=== PATIENT | female | born 1990 | race Caucasian/White ===

== ENCOUNTER 2018-09-30 23:59 | Observation (INO) | payer MEDICAID ==
[2018-10-01] MEDS ORDERED: Magnesium Sulfate/Water 20 GM/500 ML BAG ONE (00:02)
[2018-10-01] MEDS ORDERED: Sodium Chloride 0.9% 10 ML Syringe FLUSH PRN (00:39)
[2018-10-01] MEDS ORDERED: Sodium Chloride 0.9% 10 ML SDV IV PRN (00:39)
[2018-10-01] MEDS ORDERED: Sodium Chloride 0.9% 2.5 ML Syringe FLUSH PRN (00:39)
[2018-10-01] MEDS ORDERED: Betamethasone Acetate/Betamethasone Sod Phosphate 30 MG/5 ML MDV IM ONE (00:39)
[2018-10-01] MEDS ORDERED: Lidocaine 2% Viscous Solution 15 ML Cup ONE (00:45)
[2018-10-01] MEDS ORDERED: Sodium Chloride 0.9% 1,000 ML IV SCH (00:45)
[2018-10-01] MEDS ORDERED: Lidocaine 5% Oint 35.44 GM Tube TOP ONE (00:46)
[2018-10-01] MEDS ORDERED: Lidocaine 2% Jelly 30 ML Tube MUCMEM PRN (00:50)
[2018-10-01 01:14] LABS: CHLORIDE,CL 106 mmol/L (98-107); SODIUM,NA 138 mmol/L (136-145)
[2018-10-01] MEDS ORDERED: Benzocaine/Menthol 20%-0.5% Spray 78 GM Cannister TOP PRN (01:36)
--- NOTE | 2018-10-01 02:32 | US ---
HISTORY: Low pelvic pain. Evaluate for placental abruption. TECHNIQUE: Transabdominal obstetric ultrasound. COMPARISON: None. FINDINGS: Single live intrauterine gestation. Fetus is in cephalic position. cardiac activity is present with regular heart rate of 115 beats per minute. Placenta is posterior. Visualized portions of the placenta are unremarkable without evidence of abruption. Portions of the placenta are obscured by shadowing. IMPRESSION: Single live intrauterine gestation. No evidence of placental abruption. Dictated by Jefferson Ochoa MD @ Oct 01 2018 4:49PM Signed by Dr. Jefferson Ochoa @ Oct 01 2018 4:51PM
[2018-10-01] MEDS ORDERED: Ondansetron 4 MG/2 ML SDV IVPUSH PRN (08:05)
[2018-10-01] MEDS: Acetaminophen/Butalbital/Caffeine 325-50-40 MG Tab PO PRN ×2 (08:35→16:47)
[2018-10-01] MEDS: NIFEdipine 30 MG Tab.ER PO SCH (08:36)
--- NOTE | 2018-10-01 16:23 | PCM.LDHP ---
L&D History of Present Illness - General Date of Service: 10/01/18 Admit Problem/Dx: Patient Status Order with Admit Dx/Problem 10/01/18 00:39 Admission Status [Patient Status] [ADT] Routine Admission Diagnosis/Problem Admission Diagnosis/Problem Source of Information: Patient History Limitations: Reports: No Limitations - History of Present Illness Pain Score: 10 Improves with: Reports: None Worsens with: Reports: None Associated Symptoms: Reports: N - Related Data Allergies/Adverse Reactions: Allergies Allergy/AdvReac Type Severity Reaction Status Date / Time No Known Allergies Allergy Verified 09/10/18 17:26 Home Medications: Home Meds Acetaminophen [Tylenol Extra Strength] 500 mg PO DAILY PRN 09/10/18 [History] [id number]/FA/Omega3/Dha/Fish Oil [ Gummies] 1 each PO DAILY 09/10/18 [ History] Past Medical History HEENT History: Reports: None Cardiovascular History: Reports: None Respiratory History: Reports: None Gastrointestinal History: Reports: None Genitourinary History: Reports: None 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: , 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 Musculoskeletal History: Reports: Fracture Neurological History: Reports: None Psychiatric History: Reports: Anxiety Endocrine/Metabolic History: Reports: None Hematologic History: Reports: None Immunologic History: Reports: None Oncologic (Cancer) History: Reports: None Dermatologic History: Reports: None - Infectious Disease History Infectious Disease History: Reports: Chicken Pox - Past Surgical History HEENT Surgical History: Reports: None GI Surgical History: Reports: None Female Surgical History: Reports: D&C Musculoskeletal Surgical History: Reports: None Social & Family History - Family History Family Medical History: Unobtainable - Tobacco Use Smoking Status *Q: Never Smoker Second Hand Smoke Exposure: No - Caffeine Use Caffeine Use: Reports: Soda - Recreational Drug Use Recreational Drug Use: No H&P Review of Systems - Review of Systems: Review Of Systems: See Below General: Reports: No Symptoms HEENT: Reports: No Symptoms Pulmonary: Reports: No Symptoms Cardiovascular: Reports: No Symptoms Gastrointestinal: Reports: No Symptoms Genitourinary: Reports: No Symptoms Musculoskeletal: Reports: No Symptoms Skin: Reports: No Symptoms Psychiatric: Reports: No Symptoms Neurological: Reports: No Symptoms Hematologic/Lymphatic: Reports: No Symptoms Immunologic: Reports: No Symptoms L&D Exam - Exam Exam: See Below - Vital Signs Vital Signs: Last Vital Signs Temp Pulse Resp BP 146/96 H 10/01/18 08:36 Pulse Ox Weight: 95.254 kg - OB Specific Contraction Intensity: Mild Movement: Active Heart Tones: Present Presentation: Vertex - Jackson Score Jackson Score Cervix Position: Posterior Jackson Score Consistency: Firm Jackson Score Effacement: 31-50% Jackson Score Dilation: Closed Jackson Score Infant's Station: -3 Jackson Score Total: 1 - Exam General: Alert, Oriented HEENT: PERRLA, Conjunctiva Clear, EACs Clear, EOMI, Hearing Intact, Mucosa Moist & [place], Nares Patent, Normal Nasal Septum, Posterior Pharynx Clear, TMs Clear Neck: Supple, Trachea Midline Lungs: Clear to Auscultation, Normal Respiratory Effort Cardiovascular: Regular Rate, Regular Rhythm GI/Abdominal Exam: Normal Bowel Sounds, Soft, Non-Tender, No Organomegaly, No Distention, No Abnormal Bruit, No Mass, Pelvis Stable Rectal Exam: Normal Exam, Normal Rectal Tone Genitourinary: Normal external exam, Normal bimanual exam, Normal speculum exam Back Exam: Normal Inspection, Full Range of Motion Extremities: Normal Inspection, Normal Range of Motion, Non-Tender, No Pedal Edema, Normal Capillary Refill Skin: Warm, Dry, Intact Neurological: Cranial Nerves Intact, Reflexes Equal Bilateral Psychiatric: Alert, Normal Affect, Normal Mood - Patient Data Lab Results Last 24 hrs: Laboratory Results - last 24 hr 10/01/18 10/01/18 10/01/18 Range/Units 00:35 00:45 00:45 WBC 10.99 (4.0-11.0) K/uL RBC 3.69 L (4.30-5.90) M/uL Hgb 12.5 (12.0-16.0) g/dL Hct 35.0 L (36.0-46.0) % MCV 94.9 (80.0-98.0) fL MCH 33.9 H (27.0-32.0) pg MCHC 35.7 (31.0-37.0) g/dL RDW Std Deviation 39.2 (28.0-62.0) fl RDW Coeff of Kami 12 (11.0-15.0) % Plt Count 213 (150-400) K/uL MPV 11.70 (7.40-12.00) fL Sodium 138 (136-145) mmol/L Potassium 3.9 (3.5-5.1) mmol/L Chloride 106 (98-107) mmol/L Carbon Dioxide 23.5 (21.0-32.0) mmol/L BUN 12 (7.0-18.0) mg/dL Creatinine 0.8 (0.6-1.0) mg/dL Est Cr Clr Drug Dosing 116.25 mL/min Estimated GFR (MDRD) > 60.0 ml/min Glucose 95 (74-106) mg/dL Uric Acid 4.9 (2.6-7.2) mg/dL Calcium 8.3 L (8.5-10.1) mg/dL Magnesium 4.0 H (1.8-2.4) mg/dL Total Bilirubin 0.2 (0.2-1.0) mg/dL AST 13 L (15-37) IU/L ALT 15 (14-63) IU/L Alkaline Phosphatase 102 (46-116) U/L Total Protein 5.4 L (6.4-8.2) g/dL Albumin 2.3 L (3.4-5.0) g/dL Globulin 3.1 (2.6-4.0) g/dL Albumin/Globulin Ratio 0.7 L (0.9-1.6) Membrane Rupture 10/01/18 10/01/18 Range/Units 07:14 08:40 WBC (4.0-11.0) K/uL RBC (4.30-5.90) M/uL Hgb (12.0-16.0) g/dL Hct (36.0-46.0) % MCV (80.0-98.0) fL MCH (27.0-32.0) pg MCHC (31.0-37.0) g/dL RDW Std Deviation (28.0-62.0) fl RDW Coeff of Kami (11.0-15.0) % Plt Count (150-400) K/uL MPV (7.40-12.00) fL Sodium (136-145) mmol/L Potassium (3.5-5.1) mmol/L Chloride (98-107) mmol/L Carbon Dioxide (21.0-32.0) mmol/L BUN (7.0-18.0) mg/dL Creatinine (0.6-1.0) mg/dL Est Cr Clr Drug Dosing mL/min Estimated GFR (MDRD) ml/min Glucose (74-106) mg/dL Uric Acid (2.6-7.2) mg/dL Calcium (8.5-10.1) mg/dL Magnesium 5.7 H (1.8-2.4) mg/dL Total Bilirubin (0.2-1.0) mg/dL AST (15-37) IU/L ALT (14-63) IU/L Alkaline Phosphatase (46-116) U/L Total Protein (6.4-8.2) g/dL Albumin (3.4-5.0) g/dL Globulin (2.6-4.0) g/dL Albumin/Globulin Ratio (0.9-1.6) Membrane Rupture NEGATIVE Result Diagrams: 10/01/18 00:45 10/01/18 00:35 Problem List Initiated/Reviewed/Updated: Yes Orders Last 24hrs: Active Orders 24 hr Category Date Time Status Admission Status [Patient Status] [ADT] Routine ADT 10/01/18 00:39 Active Vital Signs [RC] PER UNIT ROUTINE Care 10/01/18 00:39 Active Regular Diet [DIET] Diet 10/01/18 Breakfast Active BPP wo NST [US] Routine Exams 10/01/18 09:43 Taken PROTEIN,URINE 24HR [URCHEM] Routine Lab 10/01/18 00:44 Ordered Acetaminophen/Butalbital/Caff [Fioricet 325-50-40 MG] Med 10/01/18 07:59 Active 1 - 2 tab PO Q4H PRN Benzocaine/Menthol [Dermoplast Pain Relief 20%-0.5% Med 10/01/18 01:36 Active [place]] 7 gm TOP ASDIRECTED PRN Lidocaine 2% [Xylocaine 2% Jelly] Med 10/01/18 00:50 Active See Dose Instructions MUCMEM 5XDAY PRN NIFEdipine [Procardia XL] Med 10/01/18 09:00 Active 60 mg PO DAILY Ondansetron [Zofran] Med 10/01/18 08:05 Active 4 mg IVPUSH Q6H PRN Sodium Chloride 0.9% [Normal Saline] Med 10/01/18 00:39 Active 10 ml IV ASDIRECTED PRN Sodium Chloride 0.9% [Normal Saline] 1,000 ml Med 10/01/18 00:45 Active IV ASDIRECTED Sodium Chloride 0.9% [Saline Flush] Med 10/01/18 00:39 Active 10 ml FLUSH ASDIRECTED PRN Sodium Chloride 0.9% [Saline Flush] Med 10/01/18 00:39 Active 2.5 ml FLUSH ASDIRECTED PRN Peripheral IV Insertion Adult [OM.PC] Urgent Oth 10/01/18 00:39 Ordered Resuscitation Status Routine Resus Stat 10/01/18 00:39 Ordered Medication Orders Acetaminophen/Butalbital/Caffeine (Fioricet 325-50-40 Mg) 1 - 2 tab PO Q4H PRN PRN Reason: Headache Last Admin: 10/01/18 08:35 Dose: 2 tab Benzocaine/Menthol (Dermoplast Pain Relief 20%-0.5% [place]) 7 gm TOP ASDIRECTED PRN PRN Reason: Pain Sodium Chloride (Normal Saline) 1,000 mls @ 125 mls/hr IV ASDIRECTED [facility] Last Infusion: 10/01/18 07:45 Dose: 5 mls/hr Admin: 10/01/18 00:10 Dose: 50 mls/hr Lidocaine HCl (Xylocaine 2% Jelly) 0 ml MUCMEM 5XDAY PRN PRN Reason: Pain Nifedipine (Procardia Xl) 60 mg PO DAILY [facility] Last Admin: 10/01/18 08:36 Dose: 60 mg Ondansetron HCl (Zofran) 4 mg IVPUSH Q6H PRN PRN Reason: Nausea/Vomiting Last Admin: 10/01/18 08:32 Dose: 4 mg Sodium Chloride (Saline Flush) 10 ml FLUSH ASDIRECTED PRN PRN Reason: Keep Vein Open Sodium Chloride (Saline Flush) 2.5 ml FLUSH ASDIRECTED PRN PRN Reason: Keep Vein Open Sodium Chloride (Normal Saline) 10 ml IV ASDIRECTED PRN PRN Reason: IV Use Assessment/Plan Comment:: IUP 34wks + admitted for possible Preeclampsia evaluation.
--- NOTE | 2018-10-01 16:59 | US ---
CLINICAL HISTORY: Biophysical profile followup. TECHNIQUE: Real time perry scale imaging of the fetus was performed as well as color Doppler and spectral Doppler analysis of the umbilical artery. Without non-stress testing. COMPARISON: Ultrasound same day at 0057 hours. FINDINGS: Single intrauterine gestation in cephalic position. cardiac activity is present with regular heart rate of 108-111 beats per minute. Amniotic fluid volume is within normal limits. Four quadrant amniotic fluid index is 14.5 cm. Single deepest pocket of amniotic fluid is 4.9 cm. Incidentally, there is a nuchal cord. breathing movements: 2/2 Gross body movement: 2/2 tone: 2/2 Amniotic fluid volume: 2/2 IMPRESSION: 1. Normal biophysical profile score of 8 out of 8. 2. Nuchal cord. Dictated by Jefferson Ochoa MD @ Oct 01 2018 4:52PM Signed by Dr. Jefferson Ochoa @ Oct 01 2018 4:58PM
[2018-10-02] MEDS ORDERED: Betamethasone Acetate/Betamethasone Sod Phosphate 30 MG/5 ML MDV IM ONE (00:39)
[2018-10-02 06:41] LABS: CHLORIDE,CL 106 mmol/L (98-107); SODIUM,NA 135 mmol/L (136-145)
[2018-10-02] MEDS: NIFEdipine 30 MG Tab.ER PO SCH (09:20)
--- NOTE | 2018-10-05 08:59 | PCM.DCSUM1 ---
Discharge Summary - Hospital Course Diagnosis: Stroke: No - Discharge Data Discharge Date: 10/02/18 Discharge Disposition: Home, Self-Care 01 Condition: Good - Patient Instructions Diet: Usual Diet as Tolerated Driving: Do Not Drive Showering/Bathing: May Shower Notify Provider of: Fever, Increased Pain, Nausea and/or Vomiting - Discharge Plan Home Medications: Home Meds Acetaminophen [Tylenol Extra Strength] 500 mg PO DAILY PRN 09/10/18 [History] Nak181/FA/Omega3/Dha/Fish Oil [ Gummies] 1 each PO DAILY 09/10/18 [ History] Patient Handouts: Preeclampsia and Eclampsia, Third Trimester of , [id number] Referrals: [facility] [Outside] Nasir Hernandez MD [Physician] - 10/09/18 9:45 am - Discharge Summary/Plan Comment DC Time >30 min.: Yes - General Info Date of Service: 10/02/18 Functional Status: Reports: Pain Controlled - Review of Systems General: Reports: No Symptoms HEENT: Reports: No Symptoms Pulmonary: Reports: No Symptoms Cardiovascular: Reports: No Symptoms Gastrointestinal: Reports: No Symptoms Genitourinary: Reports: No Symptoms Musculoskeletal: Reports: No Symptoms Skin: Reports: No Symptoms Neurological: Reports: No Symptoms Psychiatric: Reports: No Symptoms - Patient Data Vitals - Most Recent: Last Vital Signs Temp Pulse Resp BP 131/83 10/02/18 09:20 Pulse Ox Weight - Most Recent: 95.254 kg Med Orders - Current: Current Medications Discontinued Medications Acetaminophen/Butalbital/Caffeine (Fioricet 325-50-40 Mg) 1 - 2 tab PO Q4H PRN PRN Reason: Headache Last Admin: 10/01/18 16:47 Dose: 2 tab Benzocaine/Menthol (Dermoplast Pain Relief 20%-0.5% [place]) 7 gm TOP ASDIRECTED PRN PRN Reason: Pain Betamethasone Acet/Betameth SodPhos ([place] Soluspan 6 Mg/Ml) 12 mg IM ASDIRECTED ONE Stop: 10/01/18 00:40 Last Admin: 10/01/18 00:56 Dose: 12 mg Betamethasone Acet/Betameth SodPhos (Celestone Soluspan 6 Mg/Ml) 12 mg IM ONETIME ONE Stop: 10/02/18 00:40 Last Admin: 10/02/18 00:51 Dose: 12 mg Magnesium Sulfate (Magnesium Sulfate In Water Premix) Confirm Administered Dose 20 gm in 500 mls @ as directed .ROUTE .STK-MED ONE Stop: 10/01/18 00:03 Last Admin: 10/01/18 00:10 Dose: 50 mls/hr Sodium Chloride (Normal Saline) 1,000 mls @ 125 mls/hr IV ASDIRECTED [facility] TO [facility] Last Infusion: 10/01/18 07:45 Dose: 5 mls/hr Lidocaine HCl (Lidocaine 5%) 0 gm TOP ONETIME ONE Stop: 10/01/18 00:47 Lidocaine HCl (Xylocaine 2% Viscous) Confirm Administered Dose 15 ml .ROUTE .STK -MED ONE Stop: 10/01/18 00:46 Last Admin: 10/01/18 01:34 Dose: 15 ml Lidocaine HCl (Xylocaine 2% Jelly) 0 ml MUCMEM 5XDAY PRN PRN Reason: Pain Nifedipine (Procardia Xl) 60 mg PO DAILY [facility] Last Admin: 10/02/18 09:20 Dose: 60 mg Ondansetron HCl (Zofran) 4 mg IVPUSH Q6H PRN PRN Reason: Nausea/Vomiting Last Admin: 10/01/18 08:32 Dose: 4 mg Sodium Chloride (Saline Flush) 10 ml FLUSH ASDIRECTED PRN PRN Reason: Keep Vein Open Sodium Chloride (Saline Flush) 2.5 ml FLUSH ASDIRECTED PRN PRN Reason: Keep Vein Open Sodium Chloride (Normal Saline) 10 ml IV ASDIRECTED PRN PRN Reason: IV Use - Exam General: Reports: Alert, Oriented HEENT: Reports: Pupils Equal, Pupils Reactive, EOMI, Mucous Membr. Moist/[place] Neck: Reports: Supple Lungs: Reports: Clear to Auscultation, Normal Respiratory Effort Cardiovascular: Reports: Regular Rate, Regular Rhythm GI/Abdominal Exam: Normal Bowel Sounds, Soft, Non-Tender, No Organomegaly, No Distention, No Abnormal Bruit, No Mass, Pelvis Stable (Female) Exam: Normal External Exam, Normal Speculum Exam, Normal Bimanual Exam Rectal (Female) Exam: Normal Exam, Normal Rectal Tone Back Exam: Reports: Normal Inspection, Full Range of Motion Extremities: Normal Inspection, Normal Range of Motion, Non-Tender, No Pedal Edema, Normal Capillary Refill Skin: Reports: Warm, Dry, Intact Wound/Incisions: Reports: Healing Well Neurological: Reports: No New Focal Deficit Psy/Mental Status: Reports: Alert, Normal Affect, Normal Mood
== END 2018-10-02 09:55 | disposition home or self-care (01) ==
LOC: MW.OBCHECK 23:59 → MW.OB 10-01 00:18 → MW.OBCHECK 10-01 08:27
PROVIDERS: ADMIT Obstetrics & Gynecology; ATTEND Obstetrics & Gynecology
DX: Z04.89 Encounter for examination and observation for other specified reasons (principal); Z3A.34 34 weeks gestation of pregnancy
CPT/HCPCS: 36415; 51702; 59025; 76815; 76819; 80053; 83735; 84112; 84156; 84550; 85025; 85027; A9270; J0702; J2405; J3475; J7040; 96361; 96372; 96374; 96375; G0378

== ENCOUNTER 2018-10-15 00:09 | Inpatient (IN) | payer MEDICAID ==
--- NOTE | 2018-10-15 00:16 | PCM.LDHP ---
L&D History of Present Illness - General Date of Service: 10/15/18 Admit Problem/Dx: Admission Diagnosis/Problem Admission Diagnosis/Problem Source of Information: Patient History Limitations: Reports: No Limitations - History of Present Illness Improves with: Reports: None Worsens with: Reports: None Associated Symptoms: Reports: N - Related Data Allergies/Adverse Reactions: Allergies Allergy/AdvReac Type Severity Reaction Status Date / Time No Known Allergies Allergy Verified 09/10/18 17:26 Home Medications: Home Meds Acetaminophen [Tylenol Extra Strength] 500 mg PO DAILY PRN 09/10/18 [History] Zhn087/FA/Omega3/Dha/Fish Oil [ Gummies] 1 each PO DAILY 09/10/18 [ History] Past Medical History HEENT History: Reports: None Cardiovascular History: Reports: None Respiratory History: Reports: None Gastrointestinal History: Reports: None Genitourinary History: Reports: None 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: , 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 Musculoskeletal History: Reports: Fracture Neurological History: Reports: None Psychiatric History: Reports: Anxiety Endocrine/Metabolic History: Reports: None Hematologic History: Reports: None Immunologic History: Reports: None Oncologic (Cancer) History: Reports: None Dermatologic History: Reports: None - Infectious Disease History Infectious Disease History: Reports: Chicken Pox - Past Surgical History HEENT Surgical History: Reports: None GI Surgical History: Reports: None Female Surgical History: Reports: D&C Musculoskeletal Surgical History: Reports: None Social & Family History - Family History Family Medical History: Unobtainable - Caffeine Use Caffeine Use: Reports: Soda H&P Review of Systems - Review of Systems: Review Of Systems: See Below General: Reports: No Symptoms HEENT: Reports: No Symptoms Pulmonary: Reports: No Symptoms Cardiovascular: Reports: No Symptoms Gastrointestinal: Reports: No Symptoms Genitourinary: Reports: No Symptoms Musculoskeletal: Reports: No Symptoms Skin: Reports: No Symptoms Psychiatric: Reports: No Symptoms Neurological: Reports: No Symptoms Hematologic/Lymphatic: Reports: No Symptoms Immunologic: Reports: No Symptoms L&D Exam - Exam Exam: See Below - OB Specific Contraction Intensity: Mild Movement: Active Heart Tones: Present Presentation: Vertex - Jackson Score Jackson Score Cervix Position: Anterior Jackson Score Consistency: Soft Jackson Score Effacement: 51-70% Jackson Score Dilation: 1-2 cm Jackson Score Infant's Station: -3 Jackson Score Total: 7 - Exam General: Alert, Oriented HEENT: PERRLA, Conjunctiva Clear, EACs Clear, EOMI, Hearing Intact, Mucosa Moist & [place], Nares Patent, Normal Nasal Septum, Posterior Pharynx Clear, TMs Clear Neck: Supple, Trachea Midline Lungs: Clear to Auscultation, Normal Respiratory Effort Cardiovascular: Regular Rate, Regular Rhythm GI/Abdominal Exam: Normal Bowel Sounds, Soft, Non-Tender, No Organomegaly, No Distention, No Abnormal Bruit, No Mass, Pelvis Stable Rectal Exam: Normal Exam, Normal Rectal Tone Genitourinary: Normal external exam, Normal bimanual exam, Normal speculum exam Back Exam: Normal Inspection, Full Range of Motion Extremities: Normal Inspection, Normal Range of Motion, Non-Tender, No Pedal Edema, Normal Capillary Refill Skin: Warm, Dry, Intact Neurological: Cranial Nerves Intact, Reflexes Equal Bilateral Psychiatric: Alert, Normal Affect, Normal Mood Problem List Initiated/Reviewed/Updated: Yes Orders Last 24hrs: IUP 36 wks with pre eclampsia admited for elective induction.
[2018-10-15] MEDS ORDERED: Terbutaline 1 MG/ML SDV SUBCUT PRN (00:33)
[2018-10-15] MEDS ORDERED: Sodium Chloride 0.9% 2.5 ML Syringe FLUSH PRN (00:33)
[2018-10-15] MEDS ORDERED: Ondansetron 4 MG/2 ML SDV IVPUSH PRN ×2 (00:33→09:23)
[2018-10-15] MEDS ORDERED: Sodium Chloride 0.9% 10 ML Syringe FLUSH PRN (00:33)
[2018-10-15] MEDS ORDERED: Methylergonovine 0.2 MG/1 ML Amp IM PRN (00:33)
[2018-10-15] MEDS ORDERED: Misoprostol 200 MCG Tab PO PRN (00:33)
[2018-10-15] MEDS ORDERED: Sodium Chloride 0.9% 10 ML SDV IV PRN (00:33)
[2018-10-15] MEDS ORDERED: Misoprostol 25 MCG (1/4 of 100 MCG) Tab VAG PRN ×2 (00:33)
[2018-10-15] MEDS ORDERED: Carboprost Tromethamine 250 MCG/1 ML Amp IM PRN (00:33)
[2018-10-15] MEDS ORDERED: Nalbuphine 10 MG/1 ML Vial IVPUSH PRN ×2 (00:33→09:25)
[2018-10-15] MEDS ORDERED: Lidocaine 1% 50 ML MDV INJECT PRN (00:33)
[2018-10-15] MEDS ORDERED: Water For Irrigation,Sterile 1,000 ML Container IRR PRN (00:33)
[2018-10-15] MEDS ORDERED: Tranexamic Acid 1,000 MG in Sodium Chloride 0.9% 100 ML IV PRN (00:33)
[2018-10-15] MEDS ORDERED: Misoprostol 25 MCG (1/4 of 100 MCG) Tab PO ONE (00:38)
[2018-10-15] MEDS ORDERED: Oxytocin/0.9 % Sodium Chloride 30 UNIT/500 ML BAG IV SCH ×2 (00:45)
[2018-10-15] MEDS: Lactated Ringers 1,000 ML IV SCH ×4 (03:00→20:05)
--- NOTE | 2018-10-15 07:18 | PCM.PREANE ---
Preanesthetic Assessment - Anesthesia/Transfusion/Family Hx Anesthesia History: No Prior Anesthesia Family History of Anesthesia Reaction: No Transfusion History: No Prior Transfusion(s) - Review of Systems General: No Symptoms Pulmonary: No Symptoms Cardiovascular: No Symptoms Gastrointestinal: No Symptoms Neurological: No Symptoms, Change in Speech - Physical Assessment NPO Status Date: 10/14/18 NPO Status Time: 20:00 Height: 1.75 m Weight: 95.708 kg ASA Class: 1 Mental Status: Alert & Oriented x3 Dentition: Reports: Normal Dentition ROM/Head Extension: Full - Lab Values: Laboratory Last Values WBC 11.80 K/uL (4.0-11.0) H 10/15/18 01:10 RBC 3.66 M/uL (4.30-5.90) L 10/15/18 01:10 Hgb 12.7 g/dL (12.0-16.0) 10/15/18 01:10 Hct 35.1 % (36.0-46.0) L 10/15/18 01:10 MCV 95.9 fL (80.0-98.0) 10/15/18 01:10 MCH 34.7 pg (27.0-32.0) H 10/15/18 01:10 MCHC 36.2 g/dL (31.0-37.0) 10/15/18 01:10 RDW Std Deviation 40.5 fl (28.0-62.0) 10/15/18 01:10 RDW Coeff of Kami 12 % (11.0-15.0) 10/15/18 01:10 Plt Count 201 K/uL (150-400) 10/15/18 01:10 MPV 11.90 fL (7.40-12.00) 10/15/18 01:10 Blood Type A POSITIVE 10/15/18 01:10 Antibody Screen NEGATIVE 10/15/18 01:10 - Allergies Allergies/Adverse Reactions: Allergies Allergy/AdvReac Type Severity Reaction Status Date / Time No Known Allergies Allergy Verified 09/10/18 17:26 - Acknowledgements Anesthesia Type Planned: Spinal, Epidural Pt an Appropriate Candidate for the Planned Anesthesia: Yes Alternatives and Risks of Anesthesia Discussed w Pt/Guardian: Yes Pt/Guardian Understands and Agrees with Anesthesia Plan: Yes PreAnesthesia Questionnaire HEENT History: Reports: None Cardiovascular History: Reports: None Respiratory History: Reports: None Gastrointestinal History: Reports: None Genitourinary History: Reports: None 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: , 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 Musculoskeletal History: Reports: Fracture Neurological History: Reports: None Psychiatric History: Reports: Anxiety Endocrine/Metabolic History: Reports: None Hematologic History: Reports: None Immunologic History: Reports: None Oncologic (Cancer) History: Reports: None Dermatologic History: Reports: None - Infectious Disease History Infectious Disease History: Reports: Chicken Pox - Past Surgical History HEENT Surgical History: Reports: None GI Surgical History: Reports: None Female Surgical History: Reports: D&C Musculoskeletal Surgical History: Reports: None - SUBSTANCE USE Recreational Drug Use History: No - HOME MEDS Home Medications: Home Meds Acetaminophen [Tylenol Extra Strength] 500 mg PO DAILY PRN 09/10/18 [History] [id number]/FA/Omega3/Dha/Fish Oil [ Gummies] 1 each PO DAILY 09/10/18 [ History] - CURRENT (IN HOUSE) MEDS Current Meds: Current Medications Carboprost Tromethamine (Hemabate Ds) 250 mcg IM ASDIRECTED PRN PRN Reason: Post Hemorrhage Lactated Ringer's (Ringers, Lactated) 1,000 mls @ 150 mls/hr IV ASDIRECTED SOL Last Admin: 10/15/18 06:05 Dose: 250 mls/hr Oxytocin/Sodium Chloride (Oxytocin 30 Unit/500 Ml-Ns) 30 unit in 500 mls @ 999 mls/hr IV TITRATE SOL Oxytocin/Sodium Chloride (Oxytocin 30 Unit/500 Ml-Ns) 30 unit in 500 mls @ 2 mls/hr IV TITRATE SOL; Protocol Tranexamic Acid 1,000 mg/ (Sodium Chloride) 110 mls @ 660 mls/hr IV ONETIME PRN PRN Reason: Bleeding Lidocaine HCl (Xylocaine 1%) 50 ml INJECT ONETIME PRN PRN Reason: Laceration repair Methylergonovine Maleate (Methergine) 0.2 mg IM ASDIRECTED PRN PRN Reason: Post Hemorrhage Misoprostol (Cytotec) 200 mcg PO ONETIME PRN PRN Reason: Post Hemorrhage Misoprostol (Cytotec) 25 mcg VAG ONETIME PRN PRN Reason: Cervical Ripening Last Admin: 10/15/18 01:43 Dose: 25 mcg Misoprostol (Cytotec) 25 mcg VAG Q4H PRN PRN Reason: Cervical Ripening Misoprostol (Cytotec) 25 mcg PO Q4HR SOL Nalbuphine HCl (Nubain) 10 mg IVPUSH Q1H PRN PRN Reason: Pain (severe 7-10) Ondansetron HCl (Zofran) 4 mg IVPUSH Q4H PRN PRN Reason: Nausea/Vomiting Sodium Chloride (Saline Flush) 10 ml FLUSH ASDIRECTED PRN PRN Reason: Keep Vein Open Sodium Chloride (Saline Flush) 2.5 ml FLUSH ASDIRECTED PRN PRN Reason: Keep Vein Open Sodium Chloride (Normal Saline) 10 ml IV ASDIRECTED PRN PRN Reason: IV Use Sterile Water (Sterile Water For Irrigation) 1,000 ml IRR ASDIRECTED PRN PRN Reason: delivery Terbutaline Sulfate (Brethine) 0.25 mg SUBCUT ASDIRECTED PRN PRN Reason: Tacysystole Discontinued Medications Misoprostol (Cytotec) 25 mcg PO ONETIME ONE Stop: 10/15/18 00:39 Last Admin: 10/15/18 01:42 Dose: 25 mcg
[2018-10-15] MEDS ORDERED: Ketorolac 30 MG/ML SDV ONE (08:14)
[2018-10-15] MEDS ORDERED: Ondansetron 4 MG/2 ML SDV ONE (08:14)
[2018-10-15] MEDS ORDERED: Oxytocin 10 Units/1 ML SDV ONE (08:14)
[2018-10-15] MEDS ORDERED: Morphine PF 10 MG/10 ML SDV ONE (08:14)
[2018-10-15] MEDS ORDERED: Phenylephrine/Normal Saline 100 MCG/ML 10 ML Syringe ONE (08:14)
[2018-10-15] MEDS ORDERED: ceFAZolin 1 GM Vial ONE (08:19)
[2018-10-15] MEDS ORDERED: Sodium Chloride 0.9% 20 ML ONE (08:19)
[2018-10-15] MEDS ORDERED: Octyl 2-Cyanoacrylate 1 Tube ONE (08:28)
[2018-10-15] MEDS ORDERED: diphenhydrAMINE 50 MG/ML SDV IVPUSH PRN (09:23)
[2018-10-15] MEDS ORDERED: Lanolin 100% Cream 7 GM Tube TOP PRN (09:23)
[2018-10-15] MEDS ORDERED: Acetaminophen/oxyCODONE 325-5 MG Tab PO PRN ×2 (09:23→09:25)
[2018-10-15] MEDS ORDERED: Bisacodyl 10 MG Supp RECTAL PRN (09:23)
--- NOTE | 2018-10-15 09:27 | PCM.OPNOTE ---
- General Post-Op/Procedure Note Date of Surgery/Procedure: 10/15/18 Operative Procedure(s): Primary C/Section Pre Op Diagnosis: IUP 36 wks Preelampicia Post-Op Diagnosis: Same Anesthesia Technique: Spinal Primary Surgeon: Nasir Hernandez EBL in mLs: 600 Complications: None Condition: Good
[2018-10-15] MEDS: Ketorolac 30 MG/ML SDV IVPUSH SCH ×3 (09:30→21:33)
--- NOTE | 2018-10-15 10:19 | PCM.POSTAN ---
POST ANESTHESIA ASSESSMENT - MENTAL STATUS Mental Status: Alert - VITAL SIGNS Vital Signs: Last Vital Signs Temp 36.1 C 10/15/18 09:38 Pulse 83 10/15/18 10:08 Resp 8 L 10/15/18 10:08 BP 123/89 10/15/18 10:08 Pulse Ox 95 10/15/18 10:08 - RESPIRATORY Respiratory Status: Respiratory Rate WNL - CARDIOVASCULAR CV Status: Pulse Rate WNL - GASTROINTESTINAL GI Status: No Symptoms - POST OP HYDRATION Hydration Status: Adequate & Stable
--- NOTE | 2018-10-15 15:33 | OR ---
SURGEON: Nasir Hernandez MD DATE OF PROCEDURE: PREOPERATIVE DIAGNOSES: Intrauterine at 36 weeks plus preeclampsia, intolerance to induction of labor, non-reassuring heart rate, remote from delivery. POSTOPERATIVE DIAGNOSES: Intrauterine at 36 weeks plus preeclampsia, intolerance to induction of labor, non-reassuring heart rate, remote from delivery. OPERATION PERFORMED: Primary low-transverse section. PRIMARY SURGEON: Nasir Hernandez MD MACHINE SPLITTER: Lauren Gasca. ANESTHESIA: Spinal, Mr. Colten Liu. ESTIMATED BLOOD LOSS: 600 mL. COMPLICATIONS: None. FINDING: Female fetus. score reported to be 8 and 9. Normal uterus, tubes, and ovaries. INDICATION FOR SURGERY: This patient is 28, primigravida. She is having preeclampsia. She is treated with bedrest and antihypertension medication for the last 10 days hoping to get to 36 weeks. When she got to 36 weeks, she was admitted for induction and the patient did not tolerate induction. She had a category 2 heart rate. She was remote from delivery. A decision was made to do a primary low-transverse section. PROCEDURE IN DETAIL: The patient was brought to the OR, properly identified, and after adequate level of spinal anesthesia with the Tejeda catheter in the bladder, the patient was prepped and draped in sterile fashion as usual. Low-transverse Pfannenstiel skin incision was done. Kali's fascia and rectus fascia were opened in direction of the incision. The 2 recti muscles were and peritoneal cavity was entered. Bladder flap was raised in the usual manner pushing the bladder away from the lower uterine segment. Low-transverse uterine incision was done and extended manually with hand, fetus was in a vertex position, delivered without any problem, cried immediately. score reported to be 8 and 9. The fetus was handed to the pediatric team for resuscitation and the weight is not available at this time. The placenta delivered spontaneous, complete, and intact, and repair of the lower uterine segment was done with 2-0 Vicryl continuous interlocking in 2 layers. Reperitonealization done with 3-0 Vicryl continuous. The peritoneal cavity evacuated completely from all blood and blood clot and closed with 3-0 Vicryl continuous. The rectus fascia was closed with #1 PDS continuous and the Kali's fascia with 3-0 Vicryl continuous, the skin closed with 3-0 Vicryl with a Newton needle in a subcuticular fashion with Dermabond. The instrument and sponge count were correct. The patient tolerated the procedure well, went to recovery room in stable general condition. CHERELLE SANDOVAL /[id number]
[2018-10-15] MEDS: Docusate Sodium 100 MG Cap PO SCH (21:33)
[2018-10-16] MEDS: Ketorolac 30 MG/ML SDV IVPUSH SCH ×2 (03:51→08:35)
[2018-10-16] MEDS: Docusate Sodium 100 MG Cap PO SCH ×2 (08:01→22:47)
--- NOTE | 2018-10-16 08:24 | PCM.PNPP ---
- General Info Date of Service: 10/16/18 Admission Dx/Problem (Free Text): Admission Diagnosis/Problem Admission Diagnosis/Problem Functional Status: Reports: Pain Controlled, Tolerating Diet, Ambulating - Review of Systems General: Reports: No Symptoms HEENT: Reports: No Symptoms Pulmonary: Reports: No Symptoms Cardiovascular: Reports: No Symptoms Gastrointestinal: Reports: No Symptoms Genitourinary: Reports: No Symptoms Musculoskeletal: Reports: No Symptoms Skin: Reports: No Symptoms Neurological: Reports: No Symptoms Psychiatric: Reports: No Symptoms - General Info Date of Service: 10/16/18 - Patient Data Vital Signs - Most Recent: Last Vital Signs Temp 36.7 C 10/16/18 04:00 Pulse 84 10/16/18 07:00 Resp 16 10/16/18 07:00 BP 126/75 10/16/18 04:00 Pulse Ox 97 10/16/18 07:00 Weight - Most Recent: 95.708 kg I&O - Last 24 Hours: Intake & Output 10/15/18 10/16/18 10/16/18 22:59 06:59 14:59 Intake Total 2500 Output Total 250 300 Balance -250 2200 Lab Results - Last 24 Hours: Laboratory Results - last 24 hr 10/16/18 Range/Units 06:30 Hgb 11.0 L (12.0-16.0) g/dL Hct 32.2 L (36.0-46.0) % Med Orders - Current: Current Medications Bisacodyl (Dulcolax) 10 mg RECTAL ONETIME PRN PRN Reason: Constipation Carboprost Tromethamine (Hemabate Ds) 250 mcg IM ASDIRECTED PRN PRN Reason: Post Hemorrhage Diphenhydramine HCl (Benadryl) 25 mg IVPUSH Q6H PRN PRN Reason: Itching or Nausea Docusate Sodium (Colace) 100 mg PO BID [facility] Last Admin: 10/16/18 08:01 Dose: 100 mg Emollient Ointment (Lansinoh Hpa) 0 gm TOP ASDIRECTED PRN PRN Reason: Sore Nipples Lactated Ringer's (Ringers, Lactated) 1,000 mls @ 150 mls/hr IV ASDIRECTED [facility] Last Admin: 10/15/18 06:05 Dose: 250 mls/hr Oxytocin/Sodium Chloride (Oxytocin 30 Unit/500 Ml-Ns) 30 unit in 500 mls @ 999 mls/hr IV TITRATE SOL Oxytocin/Sodium Chloride (Oxytocin 30 Unit/500 Ml-Ns) 30 unit in 500 mls @ 2 mls/hr IV TITRATE [facility]; Protocol Tranexamic Acid 1,000 mg/ (Sodium Chloride) 110 mls @ 660 mls/hr IV ONETIME PRN PRN Reason: Bleeding Lactated Ringer's (Ringers, Lactated) 1,000 mls @ 125 mls/hr IV ASDIRECTED [facility] Last Admin: 10/15/18 20:05 Dose: 125 mls/hr Ibuprofen (Motrin) 800 mg PO Q8H PRN PRN Reason: mild pain or fever Ketorolac Tromethamine (Toradol) 30 mg IVPUSH Q6H [facility] Stop: 10/16/18 09:31 Last Admin: 10/16/18 03:51 Dose: 30 mg Lidocaine HCl (Xylocaine 1%) 50 ml INJECT ONETIME PRN PRN Reason: Laceration repair Methylergonovine Maleate (Methergine) 0.2 mg IM ASDIRECTED PRN PRN Reason: Post Hemorrhage Misoprostol (Cytotec) 200 mcg PO ONETIME PRN PRN Reason: Post Hemorrhage Misoprostol (Cytotec) 25 mcg VAG ONETIME PRN PRN Reason: Cervical Ripening Last Admin: 10/15/18 01:43 Dose: 25 mcg Misoprostol (Cytotec) 25 mcg VAG Q4H PRN PRN Reason: Cervical Ripening Misoprostol (Cytotec) 25 mcg PO Q4HR [facility] Nalbuphine HCl (Nubain) 10 mg IVPUSH Q1H PRN PRN Reason: Pain (severe 7-10) Nalbuphine HCl (Nubain) 2.5 mg IVPUSH Q3H PRN PRN Reason: Pruritis Stop: 10/16/18 09:26 Last Admin: 10/15/18 11:08 Dose: 2.5 mg Ondansetron HCl (Zofran) 4 mg IVPUSH Q4H PRN PRN Reason: Nausea/Vomiting Last Admin: 10/15/18 14:22 Dose: 4 mg Ondansetron HCl (Zofran) 4 mg IVPUSH Q4H PRN PRN Reason: Nausea/Vomiting Oxycodone/Acetaminophen (Percocet 325-5 Mg) 1 tab PO Q4H PRN PRN Reason: Pain (moderate 4-6) Oxycodone/Acetaminophen (Percocet 325-5 Mg) 2 tab PO Q4H PRN PRN Reason: Pain (moderate 4-6) Oxycodone/Acetaminophen (Percocet 325-5 Mg) 1 tab PO ONETIME PRN PRN Reason: Pain (moderate 4-6) Sodium Chloride (Saline Flush) 10 ml FLUSH ASDIRECTED PRN PRN Reason: Keep Vein Open Sodium Chloride (Saline Flush) 2.5 ml FLUSH ASDIRECTED PRN PRN Reason: Keep Vein Open Sodium Chloride (Normal Saline) 10 ml IV ASDIRECTED PRN PRN Reason: IV Use Sterile Water (Sterile Water For Irrigation) 1,000 ml IRR ASDIRECTED PRN PRN Reason: delivery Terbutaline Sulfate (Brethine) 0.25 mg SUBCUT ASDIRECTED PRN PRN Reason: Tacysystole Discontinued Medications Cefazolin Sodium (Ancef) Confirm Administered Dose 2 gm .ROUTE .STK-MED ONE Stop: 10/15/18 08:20 Sodium Chloride (Normal Saline) Confirm Administered Dose 20 mls @ as directed .ROUTE .STK-MED ONE Stop: 10/15/18 08:20 Ketorolac Tromethamine (Toradol) Confirm Administered Dose 30 mg .ROUTE .STK- MED ONE Stop: 10/15/18 08:15 Misoprostol (Cytotec) 25 mcg PO ONETIME ONE Stop: 10/15/18 00:39 Last Admin: 10/15/18 01:42 Dose: 25 mcg Morphine Sulfate (Duramorph Pf) Confirm Administered Dose 10 mg .ROUTE .STK-MED ONE Stop: 10/15/18 08:15 Octyl Cyanoacrylate (Dermabond Advance) Confirm Administered Dose 1 applic .ROUTE .STK-MED ONE Stop: 10/15/18 08:29 Last Admin: 10/15/18 14:57 Dose: Not Given Ondansetron HCl (Zofran) Confirm Administered Dose 4 mg .ROUTE .STK-MED ONE Stop: 10/15/18 08:15 Oxytocin (Pitocin) Confirm Administered Dose 20 unit .ROUTE .STK-MED ONE Stop: 10/15/18 08:15 Phenylephrine HCl (Phenylephrine In Ns 100 Mcg/Ml) Confirm Administered Dose 1 mg .ROUTE .STK-MED ONE Stop: 10/15/18 08:15 - Infant Interaction Disposition, : in Room with Family Interaction: Holding Infant Feeding: Attempted ; Nursed Fair/Poor Support Person: Significant Other - Recovery Exam Fundal Tone: Firm Fundal Level: 1 Fingerbreadths Below Umbilicus Fundal Placement: Midline Lochia Amount: Scant Lochia Color: Rubra/Red Perineum Description: Intact, Minimal Bruising/Swelling Episiotomy/Laceration: None Bladder Status: Indwelling Catheter in Place Urinary Elimination: Indwelling Catheter - Exam General: Alert, Oriented, Cooperative, No Acute Distress Lungs: Clear to Auscultation, Normal Respiratory Effort Cardiovascular: Regular Rate, Regular Rhythm, No Murmurs GI/Abdominal Exam: Soft, Non-Tender Extremities: Normal Inspection, Normal Range of Motion, Non-Tender, No Pedal Edema Skin: Warm, Dry, Intact Wound/Incisions: Healing Well, Dressing Dry and Intact, No Drainage Neurological: No New Focal Deficit, Normal Gait, Normal Speech, Normal Tone, Strength Equal Bilateral, Sensation Intact Psy/Mental Status: Alert, Normal Affect, Normal Mood - Problem List & Annotations (1) Supervision of normal IUP (intrauterine ) in primigravida SNOMED Code(s): 31091755, 666819334, 576832746, 892279542 Code(s): Z34.00 - ENCNTR FOR SUPRVSN OF NORMAL FIRST , UNSP TRIMESTER Status: Acute Priority: High Current Visit: Yes Qualifiers: Trimester: third trimester Qualified Code(s): Z34.03 - Encounter for supervision of normal first , third trimester (2) PIH ( induced hypertension) SNOMED Code(s): 22802456 Code(s): O13.9 - GESTATIONAL HTN W/O SIGNIFICANT PROTEINURIA, UNSP TRIMESTER Status: Acute Priority: High Current Visit: Yes (3) delivery delivered SNOMED Code(s): 315118871 Code(s): O82 - ENCOUNTER FOR DELIVERY WITHOUT INDICATION Status: Acute Priority: High Current Visit: Yes - Problem List Review Problem List Initiated/Reviewed/Updated: Yes - Plan Plan:: A: PPD#1, VSS, AF, Incision dressing dry, up out of bed walking. Infant in room with parents. Both stable P: Continue poc
--- NOTE | 2018-10-16 08:36 | PCM48HPAN ---
Post Anesthesia Note - EVALUATION WITHIN 48HRS OF ANESTHETIC Vital Signs in Normal Range: Yes Patient Participated in Evaluation: Yes Respiratory Function Stable: Yes Airway Patent: Yes Cardiovascular Function Stable: Yes Hydration Status Stable: Yes Pain Control Satisfactory: Yes Nausea and Vomiting Control Satisfactory: Yes Mental Status Recovered: Yes Vital Signs: Last Vital Signs Temp 98.1 F 10/16/18 04:00 Pulse 84 10/16/18 07:00 Resp 16 10/16/18 07:00 BP 126/75 10/16/18 04:00 Pulse Ox 97 10/16/18 07:00
[2018-10-16] MEDS: Acetaminophen/oxyCODONE 325-5 MG Tab PO PRN ×3 (13:31→22:45)
[2018-10-16] MEDS: Ibuprofen 800 MG Tab PO PRN (16:06)
[2018-10-17] MEDS: Ibuprofen 800 MG Tab PO PRN ×2 (06:42→17:54)
[2018-10-17] MEDS: Acetaminophen/oxyCODONE 325-5 MG Tab PO PRN ×4 (06:43→21:52)
[2018-10-17] MEDS: Misoprostol 25 MCG (1/4 of 100 MCG) Tab PO SCH ×5 (07:19→17:03)
--- NOTE | 2018-10-17 08:34 | PCM.PNPP ---
- General Info Date of Service: 10/17/18 Functional Status: Reports: Pain Controlled - Review of Systems General: Reports: No Symptoms HEENT: Reports: No Symptoms Pulmonary: Reports: No Symptoms Cardiovascular: Reports: No Symptoms Gastrointestinal: Reports: No Symptoms Genitourinary: Reports: No Symptoms Musculoskeletal: Reports: No Symptoms Skin: Reports: No Symptoms Neurological: Reports: No Symptoms Psychiatric: Reports: No Symptoms - General Info Date of Service: 10/17/18 - Patient Data Vital Signs - Most Recent: Last Vital Signs Temp 36.9 C 10/17/18 08:00 Pulse 79 10/17/18 08:00 Resp 15 10/17/18 08:00 BP 133/82 10/17/18 08:00 Pulse Ox 96 10/17/18 08:00 Weight - Most Recent: 95.708 kg Med Orders - Current: Current Medications Bisacodyl (Dulcolax) 10 mg RECTAL ONETIME PRN PRN Reason: Constipation Carboprost Tromethamine (Hemabate Ds) 250 mcg IM ASDIRECTED PRN PRN Reason: Post Hemorrhage Diphenhydramine HCl (Benadryl) 25 mg IVPUSH Q6H PRN PRN Reason: Itching or Nausea Docusate Sodium (Colace) 100 mg PO BID [facility] Last Admin: 10/16/18 22:47 Dose: 100 mg Emollient Ointment (Lansinoh Hpa) 0 gm TOP ASDIRECTED PRN PRN Reason: Sore Nipples Lactated Ringer's (Ringers, Lactated) 1,000 mls @ 150 mls/hr IV ASDIRECTED [facility] Last Admin: 10/15/18 06:05 Dose: 250 mls/hr Oxytocin/Sodium Chloride (Oxytocin 30 Unit/500 Ml-Ns) 30 unit in 500 mls @ 999 mls/hr IV TITRATE SOL Oxytocin/Sodium Chloride (Oxytocin 30 Unit/500 Ml-Ns) 30 unit in 500 mls @ 2 mls/hr IV TITRATE [facility]; Protocol Tranexamic Acid 1,000 mg/ (Sodium Chloride) 110 mls @ 660 mls/hr IV ONETIME PRN PRN Reason: Bleeding Lactated Ringer's (Ringers, Lactated) 1,000 mls @ 125 mls/hr IV ASDIRECTED [facility] Last Admin: 10/15/18 20:05 Dose: 125 mls/hr Ibuprofen (Motrin) 800 mg PO Q8H PRN PRN Reason: mild pain or fever Last Admin: 10/17/18 06:42 Dose: 800 mg Lidocaine HCl (Xylocaine 1%) 50 ml INJECT ONETIME PRN PRN Reason: Laceration repair Methylergonovine Maleate (Methergine) 0.2 mg IM ASDIRECTED PRN PRN Reason: Post Hemorrhage Misoprostol (Cytotec) 200 mcg PO ONETIME PRN PRN Reason: Post Hemorrhage Misoprostol (Cytotec) 25 mcg VAG ONETIME PRN PRN Reason: Cervical Ripening Last Admin: 10/15/18 01:43 Dose: 25 mcg Misoprostol (Cytotec) 25 mcg VAG Q4H PRN PRN Reason: Cervical Ripening Misoprostol (Cytotec) 25 mcg PO Q4HR [facility] Last Admin: 10/17/18 08:27 Dose: Not Given Nalbuphine HCl (Nubain) 10 mg IVPUSH Q1H PRN PRN Reason: Pain (severe 7-10) Ondansetron HCl (Zofran) 4 mg IVPUSH Q4H PRN PRN Reason: Nausea/Vomiting Last Admin: 10/15/18 14:22 Dose: 4 mg Ondansetron HCl (Zofran) 4 mg IVPUSH Q4H PRN PRN Reason: Nausea/Vomiting Oxycodone/Acetaminophen (Percocet 325-5 Mg) 1 tab PO Q4H PRN PRN Reason: Pain (moderate 4-6) Last Admin: 10/17/18 06:43 Dose: 1 tab Oxycodone/Acetaminophen (Percocet 325-5 Mg) 2 tab PO Q4H PRN PRN Reason: Pain (moderate 4-6) Oxycodone/Acetaminophen (Percocet 325-5 Mg) 1 tab PO ONETIME PRN PRN Reason: Pain (moderate 4-6) Sodium Chloride (Saline Flush) 10 ml FLUSH ASDIRECTED PRN PRN Reason: Keep Vein Open Sodium Chloride (Saline Flush) 2.5 ml FLUSH ASDIRECTED PRN PRN Reason: Keep Vein Open Sodium Chloride (Normal Saline) 10 ml IV ASDIRECTED PRN PRN Reason: IV Use Sterile Water (Sterile Water For Irrigation) 1,000 ml IRR ASDIRECTED PRN PRN Reason: delivery Terbutaline Sulfate (Brethine) 0.25 mg SUBCUT ASDIRECTED PRN PRN Reason: Tacysystole Discontinued Medications Cefazolin Sodium (Ancef) Confirm Administered Dose 2 gm .ROUTE .STK-MED ONE Stop: 10/15/18 08:20 Sodium Chloride (Normal Saline) Confirm Administered Dose 20 mls @ as directed .ROUTE .STK-MED ONE Stop: 10/15/18 08:20 Ketorolac Tromethamine (Toradol) Confirm Administered Dose 30 mg .ROUTE .STK- MED ONE Stop: 10/15/18 08:15 Ketorolac Tromethamine (Toradol) 30 mg IVPUSH Q6H [facility] Stop: 10/16/18 09:31 Last Admin: 10/16/18 08:35 Dose: 30 mg Misoprostol (Cytotec) 25 mcg PO ONETIME ONE Stop: 10/15/18 00:39 Last Admin: 10/15/18 01:42 Dose: 25 mcg Morphine Sulfate (Duramorph Pf) Confirm Administered Dose 10 mg .ROUTE .STK-MED ONE Stop: 10/15/18 08:15 Nalbuphine HCl (Nubain) 2.5 mg IVPUSH Q3H PRN PRN Reason: Pruritis Stop: 10/16/18 09:26 Last Admin: 10/15/18 11:08 Dose: 2.5 mg Octyl Cyanoacrylate (Dermabond Advance) Confirm Administered Dose 1 applic .ROUTE .STK-MED ONE Stop: 10/15/18 08:29 Last Admin: 10/15/18 14:57 Dose: Not Given Ondansetron HCl (Zofran) Confirm Administered Dose 4 mg .ROUTE .STK-MED ONE Stop: 10/15/18 08:15 Oxytocin (Pitocin) Confirm Administered Dose 20 unit .ROUTE .STK-MED ONE Stop: 10/15/18 08:15 Phenylephrine HCl (Phenylephrine In Ns 100 Mcg/Ml) Confirm Administered Dose 1 mg .ROUTE .STK-MED ONE Stop: 10/15/18 08:15 - Infant Interaction Infant Disposition, : in Room with Family Infant Interaction: Holding Infant Infant Feeding: Attempted ; Nursed Fair/Poor Support Person: Significant Other - Recovery Exam Fundal Tone: Firm Fundal Level: 1 Fingerbreadths Below Umbilicus Fundal Placement: Midline Lochia Amount: Scant Lochia Color: Rubra/Red Perineum Description: Intact, Minimal Bruising/Swelling Episiotomy/Laceration: None Bladder Status: Voiding Urinary Elimination: Voided - Exam General: Alert, Oriented HEENT: Pupils Equal Neck: Supple Lungs: Clear to Auscultation, Normal Respiratory Effort Cardiovascular: Regular Rate, Regular Rhythm GI/Abdominal Exam: Normal Bowel Sounds, Soft, Non-Tender, No Organomegaly, No Distention, No Abnormal Bruit, No Mass, Pelvis Stable Extremities: Normal Inspection, Normal Range of Motion, Non-Tender, No Pedal Edema, Normal Capillary Refill Skin: Warm, Dry, Intact Wound/Incisions: Healing Well Neurological: No New Focal Deficit Psy/Mental Status: Alert, Normal Affect, Normal Mood - Problem List Review Problem List Initiated/Reviewed/Updated: Yes - Assessment Assessment:: incision is clean dry and there is no sign of infection. Because of the patient's situation and have situation we will discharge her in a.m. - Plan Plan:: A: PPD#1, VSS, AF, Incision dressing dry, up out of bed walking. in room with parents. Both stable P: Continue poc
[2018-10-17] MEDS: Docusate Sodium 100 MG Cap PO SCH ×2 (09:44→21:52)
[2018-10-18] MEDS: Ibuprofen 800 MG Tab PO PRN (02:13)
--- NOTE | 2018-10-18 08:49 | PCM.DCSUM1 ---
Discharge Summary - Hospital Course Free Text/Narrative:: Discharge home with infant, follow up in 1 week for incision check and 6 weeks for . Diagnosis: Stroke: No Modified [place] Scale: No Symptoms at All Modified [place] Scale Score: 0 - Discharge Data Discharge Date: 10/18/18 Discharge Disposition: Home, Self-Care 01 Condition: Good - Referral to Home Health Primary Care Physician: PCP None - Discharge Diagnosis/Problem(s) (1) Supervision of normal IUP (intrauterine ) in primigravida SNOMED Code(s): 33899243, 948217878, 960100589, 805521602 ICD Code: Z34.00 - ENCNTR FOR SUPRVSN OF NORMAL FIRST , UNSP TRIMESTER Status: Acute Priority: High Current Visit: Yes Qualifiers: Trimester: third trimester Qualified Code(s): Z34.03 - Encounter for supervision of normal first , third trimester (2) PIH ( induced hypertension) SNOMED Code(s): 17808304 ICD Code: O13.9 - GESTATIONAL HTN W/O SIGNIFICANT PROTEINURIA, UNSP TRIMESTER Status: Acute Priority: High Current Visit: Yes Qualifiers: Trimester: third trimester Qualified Code(s): O13.3 - Gestational [ -induced] hypertension without significant proteinuria, third trimester (3) delivery delivered SNOMED Code(s): 243467541 ICD Code: O82 - ENCOUNTER FOR DELIVERY WITHOUT INDICATION Status: Acute Priority: High Current Visit: Yes - Patient Summary/Data Operative Procedure(s) Performed: Primary C/Section - Patient Instructions Diet: Usual Diet as Tolerated Activity: As Tolerated, No Lifting Over 25 Pounds, No Strenuous Activities, Rest and Relax Today Driving: Do Not Drive Showering/Bathing: May Shower Notify Provider of: Fever, Increased Pain, Swelling and Redness, Drainage, Nausea and/or Vomiting Other/Special Instructions: Discharge home with infant, follow up in 1 week for incision check and 6 weeks for . - Discharge Plan *PRESCRIPTION DRUG MONITORING PROGRAM REVIEWED*: Not Applicable *COPY OF PRESCRIPTION DRUG MONITORING REPORT IN PATIENT ROLAN: Not Applicable Prescriptions/Med Rec: Acetaminophen/oxyCODONE [Percocet 325-5 MG] 1 - 2 tab PO Q4H PRN #30 tablet PRN Reason: Pain (Moderate 4-6) Ibuprofen [Motrin] 800 mg PO Q8H PRN #90 tablet PRN Reason: mild pain or fever Home Medications: Home Meds Acetaminophen [Tylenol Extra Strength] 500 mg PO DAILY PRN 09/10/18 [History] Ihu480/FA/Omega3/Dha/Fish Oil [ Gummies] 1 each PO DAILY 09/10/18 [ History] Acetaminophen/oxyCODONE [Percocet 325-5 MG] 1 - 2 tab PO Q4H PRN #30 tablet 01/24 [Rx] Ibuprofen [Motrin] 800 mg PO Q8H PRN #90 tablet 10/18/18 [Rx] Oxygen Therapy Mode: Room Air Referrals: [facility] [Outside] Nasir Hernandez MD [Physician] - ( week- October 22@ 3:30pm w/ week- November 26@ 3:00pm w/ ) - Discharge Summary/Plan Comment DC Time >30 min.: Yes Discharge Summary/Plan Comment: Discharge home with , follow up in 1 week for incision check and 6 weeks for . - General Info Admission Dx/Problem (Free Text: Admission Diagnosis/Problem Admission Diagnosis/Problem Functional Status: Reports: Pain Controlled, Tolerating Diet, Ambulating, Urinating - Review of Systems General: Reports: No Symptoms HEENT: Reports: No Symptoms Pulmonary: Reports: No Symptoms Cardiovascular: Reports: No Symptoms Gastrointestinal: Reports: No Symptoms Genitourinary: Reports: No Symptoms Musculoskeletal: Reports: No Symptoms Skin: Reports: No Symptoms Neurological: Reports: No Symptoms Psychiatric: Reports: No Symptoms - Patient Data Vitals - Most Recent: Last Vital Signs Temp 37.0 C 10/18/18 04:35 Pulse 71 10/18/18 04:35 Resp 18 10/18/18 04:35 BP 138/84 10/18/18 04:35 Pulse Ox 98 10/18/18 04:35 Weight - Most Recent: 95.708 kg Med Orders - Current: Current Medications Bisacodyl (Dulcolax) 10 mg RECTAL ONETIME PRN PRN Reason: Constipation Diphenhydramine HCl (Benadryl) 25 mg IVPUSH Q6H PRN PRN Reason: Itching or Nausea Docusate Sodium (Colace) 100 mg PO BID SOL Last Admin: 10/17/18 21:52 Dose: 100 mg Emollient Ointment (Lansinoh Hpa) 0 gm TOP ASDIRECTED PRN PRN Reason: Sore Nipples Lactated Ringer's (Ringers, Lactated) 1,000 mls @ 125 mls/hr IV ASDIRECTED SOL Last Admin: 10/15/18 20:05 Dose: 125 mls/hr Ibuprofen (Motrin) 800 mg PO Q8H PRN PRN Reason: mild pain or fever Last Admin: 10/18/18 02:13 Dose: 800 mg Ondansetron HCl (Zofran) 4 mg IVPUSH Q4H PRN PRN Reason: Nausea/Vomiting Oxycodone/Acetaminophen (Percocet 325-5 Mg) 1 tab PO Q4H PRN PRN Reason: Pain (moderate 4-6) Last Admin: 10/17/18 21:52 Dose: 1 tab Oxycodone/Acetaminophen (Percocet 325-5 Mg) 2 tab PO Q4H PRN PRN Reason: Pain (moderate 4-6) Oxycodone/Acetaminophen (Percocet 325-5 Mg) 1 tab PO ONETIME PRN PRN Reason: Pain (moderate 4-6) Sodium Chloride (Saline Flush) 10 ml FLUSH ASDIRECTED PRN PRN Reason: Keep Vein Open Sodium Chloride (Saline Flush) 2.5 ml FLUSH ASDIRECTED PRN PRN Reason: Keep Vein Open Sodium Chloride (Normal Saline) 10 ml IV ASDIRECTED PRN PRN Reason: IV Use Discontinued Medications Carboprost Tromethamine (Hemabate Ds) 250 mcg IM ASDIRECTED PRN PRN Reason: Post Hemorrhage Cefazolin Sodium (Ancef) Confirm Administered Dose 2 gm .ROUTE .STK-MED ONE Stop: 10/15/18 08:20 Lactated Ringer's (Ringers, Lactated) 1,000 mls @ 150 mls/hr IV ASDIRECTED SOL Last Admin: 10/15/18 06:05 Dose: 250 mls/hr Oxytocin/Sodium Chloride (Oxytocin 30 Unit/500 Ml-Ns) 30 unit in 500 mls @ 999 mls/hr IV TITRATE SOL Oxytocin/Sodium Chloride (Oxytocin 30 Unit/500 Ml-Ns) 30 unit in 500 mls @ 2 mls/hr IV TITRATE SOL; Protocol Tranexamic Acid 1,000 mg/ (Sodium Chloride) 110 mls @ 660 mls/hr IV ONETIME PRN PRN Reason: Bleeding Sodium Chloride (Normal Saline) Confirm Administered Dose 20 mls @ as directed .ROUTE .STK-MED ONE Stop: 10/15/18 08:20 Ketorolac Tromethamine (Toradol) Confirm Administered Dose 30 mg .ROUTE .STK- MED ONE Stop: 10/15/18 08:15 Ketorolac Tromethamine (Toradol) 30 mg IVPUSH Q6H [facility] Stop: 10/16/18 09:31 Last Admin: 10/16/18 08:35 Dose: 30 mg Lidocaine HCl (Xylocaine 1%) 50 ml INJECT ONETIME PRN PRN Reason: Laceration repair Methylergonovine Maleate (Methergine) 0.2 mg IM ASDIRECTED PRN PRN Reason: Post Hemorrhage Misoprostol (Cytotec) 200 mcg PO ONETIME PRN PRN Reason: Post Hemorrhage Misoprostol (Cytotec) 25 mcg VAG ONETIME PRN PRN Reason: Cervical Ripening Last Admin: 10/15/18 01:43 Dose: 25 mcg Misoprostol (Cytotec) 25 mcg VAG Q4H PRN PRN Reason: Cervical Ripening Misoprostol (Cytotec) 25 mcg PO ONETIME ONE Stop: 10/15/18 00:39 Last Admin: 10/15/18 01:42 Dose: 25 mcg Misoprostol (Cytotec) 25 mcg PO Q4HR [facility] Last Admin: 10/17/18 17:03 Dose: Not Given Morphine Sulfate (Duramorph Pf) Confirm Administered Dose 10 mg .ROUTE .STK-MED ONE Stop: 10/15/18 08:15 Nalbuphine HCl (Nubain) 10 mg IVPUSH Q1H PRN PRN Reason: Pain (severe 7-10) Nalbuphine HCl (Nubain) 2.5 mg IVPUSH Q3H PRN PRN Reason: Pruritis Stop: 10/16/18 09:26 Last Admin: 10/15/18 11:08 Dose: 2.5 mg Octyl Cyanoacrylate (Dermabond Advance) Confirm Administered Dose 1 applic .ROUTE .STK-MED ONE Stop: 10/15/18 08:29 Last Admin: 10/15/18 14:57 Dose: Not Given Ondansetron HCl (Zofran) 4 mg IVPUSH Q4H PRN PRN Reason: Nausea/Vomiting Last Admin: 10/15/18 14:22 Dose: 4 mg Ondansetron HCl (Zofran) Confirm Administered Dose 4 mg .ROUTE .STK-MED ONE Stop: 10/15/18 08:15 Oxytocin (Pitocin) Confirm Administered Dose 20 unit .ROUTE .STK-MED ONE Stop: 10/15/18 08:15 Phenylephrine HCl (Phenylephrine In Ns 100 Mcg/Ml) Confirm Administered Dose 1 mg .ROUTE .STK-MED ONE Stop: 10/15/18 08:15 Sterile Water (Sterile Water For Irrigation) 1,000 ml IRR ASDIRECTED PRN PRN Reason: delivery Terbutaline Sulfate (Brethine) 0.25 mg SUBCUT ASDIRECTED PRN PRN Reason: Tacysystole - Exam General: Reports: Alert, Oriented, Cooperative, No Acute Distress Lungs: Reports: Normal Respiratory Effort GI/Abdominal Exam: Soft, Non-Tender (Female) Exam: Deferred, Vaginal Bleeding Rectal (Female) Exam: Deferred Back Exam: Reports: Normal Inspection, Full Range of Motion Extremities: Normal Inspection, Normal Range of Motion, Non-Tender, No Pedal Edema Skin: Reports: Warm, Dry, Intact Wound/Incisions: Reports: Healing Well, No Drainage. Denies: Erythema Neurological: Reports: No New Focal Deficit, Normal Speech, Normal Tone, Strength Equal Bilateral, Sensation Intact Psy/Mental Status: Reports: Alert, Normal Affect, Normal Mood
[2018-10-18] MEDS: Acetaminophen/oxyCODONE 325-5 MG Tab PO PRN (09:02)
[2018-10-18] MEDS: Docusate Sodium 100 MG Cap PO SCH (09:03)
== END 2018-10-18 09:55 | disposition home or self-care (01) | DRG 788 ==
LOC: MW.OBCHECK 00:09 → MW.OB 00:10 → MW.OBCHECK 00:33 → OBSVTOIN 09:08 → MW.OB 12:00
PROVIDERS: ADMIT Obstetrics & Gynecology; ATTEND Obstetrics & Gynecology
PROC: 10D00Z1 Extraction of Products of Conception, Low, Open Approach (ICD-10-PCS; principal; 2018-10-15)
DX: O13.3 Gestational [pregnancy-induced] hypertension without significant proteinuria, third trimester (principal); O99.344 Other mental disorders complicating childbirth; Z37.0 Single live birth; F41.9 Anxiety disorder, unspecified; Z3A.36 36 weeks gestation of pregnancy; Z79.899 Other long term (current) drug therapy; O76 Abnormality in fetal heart rate and rhythm complicating labor and delivery; O14.94 Unspecified pre-eclampsia, complicating childbirth
CPT/HCPCS: 36415; 59025; 85014; 85018; 85027; 86850; 86900; 86901; A9270-GY; J0690; J1885; J2270; J2300; J2370; J2405; J2590; J7120

== ENCOUNTER 2021-10-19 22:03 | Emergency (ER) | payer MEDICAID ==
[2021-10-20] MEDS: Metoclopramide 10 MG/2 ML SDV IVPUSH ONE (00:39)
[2021-10-20] MEDS: Acetaminophen 500 MG Tab PO ONE (00:39)
[2021-10-20] MEDS: Sodium Chloride 0.9% 1,000 ML IV ONE (00:40)
[2021-10-20] MEDS: Sodium Chloride 0.9% 10 ML Syringe FLUSH PRN (00:44)
[2021-10-20] MEDS: Sodium Chloride 0.9% 2.5 ML Syringe FLUSH PRN (00:44)
[2021-10-20] MEDS: diphenhydrAMINE 50 MG/ML SDV IVPUSH ONE (01:14)
[2021-10-20 01:23] LABS: CARBON DIOXIDE,CO2 27.2 mmol/L (21.0-32.0); POTASSIUM,K 3.6 mmol/L (3.5-5.1)
== END 2021-10-20 02:47 | disposition home or self-care (01) ==
LOC: MW.ED 22:03
DX: O20.9 Hemorrhage in early pregnancy, unspecified (principal); Z3A.08 8 weeks gestation of pregnancy; Z91.013 Allergy to seafood; Z79.899 Other long term (current) drug therapy
CPT/HCPCS: 36415; 80053; 81003; 83735; 84100; 84702; 85025; 96361; 96374; 96375; 99284; A9270; J1200; J2765; J3490; J7030

== ENCOUNTER 2023-09-11 04:49 | Inpatient (IN) | payer BC, MEDICAID ==
[2023-09-11] MEDS: Lactated Ringers 1,000 ML IV SCH ×2 (05:05→10:15)
[2023-09-11] MEDS ORDERED: Sodium Chloride 0.9% 2.5 ML Syringe FLUSH PRN (05:10)
[2023-09-11] MEDS ORDERED: Citric Acid/Sodium Citrate Solution 30 ML Cup PO ONE (05:10)
[2023-09-11] MEDS ORDERED: ceFAZolin 2 GM in Sodium Chloride 0.9% 50 ML IV ONE (05:10)
[2023-09-11] MEDS ORDERED: Sodium Chloride 0.9% 20 ML SDV IV PRN (05:10)
[2023-09-11] MEDS ORDERED: Sodium Chloride 0.9% 10 ML Syringe FLUSH PRN (05:10)
[2023-09-11] MEDS ORDERED: Oxytocin/0.9 % Sodium Chloride 30 UNIT/500 ML BAG IV SCH (05:15)
[2023-09-11 05:22] LABS: HEMATOCRIT 35.3 % (37.0-47.0); HEMOGLOBIN 12.3 g/dL (12.0-16.0); MEAN CORPUSCULAR HEMOGLOBIN 31.8 pg (28.0-32.0); MEAN CORPUSCULAR HGB CONC 34.8 g/dL (32.0-36.0); MEAN CORPUSCULAR VOLUME 91.2 fL (83.0-99.0); MEAN PLATELET VOLUME 10.1 fL (9.4-12.3); PLATELET COUNT,PLT 232 K/uL (150-400); RED BLOOD CELL COUNT 3.87 M/uL (4.10-5.30); WHITE BLOOD CELL COUNT,WBC 9.75 K/uL (3.9-11.3)
[2023-09-11] MEDS: Ondansetron 4 MG/2 ML SDV IVPUSH PRN ×2 (05:28→14:48)
[2023-09-11] MEDS: Morphine 4 MG/ML Syringe IVPUSH ONE (06:15)
[2023-09-11] MEDS ORDERED: diphenhydrAMINE 50 MG/ML SDV IVPUSH PRN ×2 (06:57→08:42)
[2023-09-11] MEDS ORDERED: Phenylephrine HCl In 0.9% NaCl 1 MG/10 ML Syringe IVPUSH PRN (06:57)
[2023-09-11] MEDS ORDERED: Naloxone 0.4 MG/ML SDV IVPUSH PRN (06:57)
[2023-09-11] MEDS ORDERED: Morphine 2 MG/ML SYRINGE IVPUSH PRN (06:57)
[2023-09-11] MEDS ORDERED: HYDROmorphone 1 MG/ML Syringe IVPUSH PRN (06:57)
[2023-09-11] MEDS ORDERED: Nalbuphine 10 MG/1 ML Vial IVPUSH PRN (06:57)
[2023-09-11] MEDS ORDERED: Albuterol 0.083% 2.5 MG/3 ML Neb Soln NEB PRN (06:57)
[2023-09-11] MEDS ORDERED: Metoclopramide 10 MG/2 ML SDV IVPUSH PRN (06:57)
[2023-09-11] MEDS ORDERED: ePHEDrine 50 MG/ML SDV IVPUSH PRN (06:57)
[2023-09-11] MEDS ORDERED: fentaNYL 100 MCG/2 ML SDV IVPUSH PRN (06:57)
[2023-09-11] MEDS ORDERED: fentaNYL 50 MCG/ML SDV IVPUSH PRN (06:57)
[2023-09-11] MEDS ORDERED: Ondansetron 4 MG/2 ML SDV IVPUSH PRN ×2 (06:57)
[2023-09-11] MEDS ORDERED: droPERidol 5 MG/2 ML SDV IVPUSH PRN (06:57)
[2023-09-11] MEDS ORDERED: ePHEDrine 50 MG/ML SDV IM PRN (06:58)
[2023-09-11] MEDS ORDERED: EPINEPHrine 1 MG/1 ML Amp ONE (07:09)
[2023-09-11] MEDS ORDERED: Ropivacaine 0.5% 5 MG/ML 30 ML SDV ONE (07:09)
[2023-09-11] MEDS ORDERED: ceFAZolin 1 GM Vial ONE (07:09)
[2023-09-11] MEDS ORDERED: Oxytocin 10 Units/1 ML SDV ONE (07:09)
[2023-09-11] MEDS ORDERED: Bupivacaine 0.25% 30 ML SDV ONE (07:09)
[2023-09-11] MEDS ORDERED: Ketorolac 30 MG/ML SDV ONE (07:09)
[2023-09-11] MEDS ORDERED: Morphine PF 10 MG/10 ML SDV ONE (07:10)
[2023-09-11] MEDS ORDERED: Phenylephrine HCl In 0.9% NaCl 1 MG/10 ML Syringe ONE ×2 (07:17→07:57)
[2023-09-11] MEDS ORDERED: Azithromycin 500 MG Vial ONE (07:47)
[2023-09-11] MEDS ORDERED: Tranexamic Acid 1,000 MG/10 ML Vial ONE (08:13)
[2023-09-11] MEDS ORDERED: ePHEDrine 50 MG/ML SDV ONE (08:23)
[2023-09-11] MEDS ORDERED: Bisacodyl 10 MG Supp RECTAL PRN (08:42)
[2023-09-11] MEDS ORDERED: Acetaminophen/oxyCODONE 325-5 MG Tab PO PRN (08:42)
[2023-09-11] MEDS ORDERED: Misoprostol 200 MCG Tab RECTAL PRN (08:42)
[2023-09-11] MEDS ORDERED: Methylergonovine 0.2 MG/1 ML Amp IM PRN (08:42)
[2023-09-11] MEDS ORDERED: Oxytocin 10 Units/1 ML SDV IM PRN (08:42)
[2023-09-11] MEDS ORDERED: Lanolin 100% Cream 7 GM Tube TOP PRN (08:42)
[2023-09-11] MEDS: Ketorolac 30 MG/ML SDV IVPUSH SCH (08:45)
[2023-09-11 09:14] LABS: PH,UMBILICAL ARTERIAL 7.161 (7.18-7.38); PH,UMBILICAL VENOUS 7.243 (7.25-7.45)
[2023-09-11] MEDS: Prenatal Multivitamin with Calcium/Folic Acid/Iron Tab PO SCH (09:53)
[2023-09-11] MEDS: Docusate Sodium 100 MG Cap PO SCH (09:53)
[2023-09-11] MEDS: Acetaminophen 1,000 MG in Premix Bag 1 BAG IV SCH (10:14)
[2023-09-12 05:24] LABS: HEMATOCRIT 29.1 % (37.0-47.0)
[2023-09-12] MEDS: Acetaminophen/oxyCODONE 325-5 MG Tab PO PRN ×2 (12:18→21:07)
[2023-09-12] MEDS: Silver Sulfadiazine 1% Crm 50 GM Tube TOP SCH (14:06)
[2023-09-12] MEDS: Ibuprofen 800 MG Tab PO PRN (19:54)
[2023-09-13] MEDS ORDERED: Oxytocin 10 Units/1 ML SDV ONE (09:40)
[2023-09-13] MEDS ORDERED: EPINEPHrine 1 MG/1 ML Amp ONE (09:40)
[2023-09-13] MEDS ORDERED: Lidocaine 2% 5 ML SDV ONE ×3 (09:40→11:12)
[2023-09-13] MEDS ORDERED: Ondansetron 4 MG/2 ML SDV ONE (09:40)
[2023-09-13] MEDS ORDERED: Bupivacaine 0.25% 30 ML SDV ONE (09:40)
[2023-09-13] MEDS ORDERED: Ketorolac 30 MG/ML SDV ONE ×2 (09:40→11:21)
[2023-09-13] MEDS ORDERED: Bupivacaine 0.5% 10 ML SDV ONE (09:40)
[2023-09-13] MEDS ORDERED: fentaNYL 100 MCG/2 ML SDV ONE (09:40)
[2023-09-13] MEDS ORDERED: Ropivacaine 0.5% 5 MG/ML 30 ML SDV ONE (09:40)
[2023-09-13] MEDS ORDERED: ceFAZolin 1 GM Vial ONE (09:40)
[2023-09-13] MEDS ORDERED: Morphine PF 10 MG/10 ML SDV ONE (09:40)
[2023-09-13] MEDS ORDERED: Azithromycin 500 MG Vial ONE (09:58)
[2023-09-13] MEDS ORDERED: Tranexamic Acid 1,000 MG/10 ML Vial ONE (10:23)
[2023-09-13] MEDS ORDERED: Phenylephrine HCl In 0.9% NaCl 1 MG/10 ML Syringe ONE ×2 (10:27→10:42)
[2023-09-13] MEDS ORDERED: Midazolam 1 MG/ML 2 ML SDV ONE (10:45)
== END 2023-09-13 13:44 | disposition home or self-care (01) | DRG 540 ==
LOC: MW.OB 04:49
PROVIDERS: ADMIT Obstetrics & Gynecology; ATTEND Obstetrics & Gynecology
PROC: 10D00Z1 Extraction of Products of Conception, Low, Open Approach (ICD-10-PCS; principal; 2023-09-11 08:00)
DX: O99.824 Streptococcus B carrier state complicating childbirth (principal); Z37.0 Single live birth; Z3A.39 39 weeks gestation of pregnancy; O34.211 Maternal care for low transverse scar from previous cesarean delivery; O9A.22 Injury, poisoning and certain other consequences of external causes complicating childbirth; T24.111A Burn of first degree of right thigh, initial encounter; O42.02 Full-term premature rupture of membranes, onset of labor within 24 hours of rupture
CPT/HCPCS: 36415; 82803; 84112; 85014; 85018; 85027; 86592; 86850; 86900; 86901; A9270-GY; J0131; J0171; J0456; J0665; J0690; J1100; J1885; J2250; J2270; J2274; J2371; J2405; J2590; J2795; J3010; J3490; J7120